=== PATIENT | male | born 1955 | race Caucasian/White ===

== ENCOUNTER → 2016-09-17 | Outpatient (CLI) | payer SELFPAY ==
[2016-09-17 10:34] LABS: CHLORIDE,CL 103 mmol/L (98-110); SODIUM,NA 137 mmol/L (136-146)
--- NOTE | 2016-09-17 14:28 | US ---
EXAMINATION: Abdominal ultrasound HISTORY: Right lower quadrant swelling COMPARISON: None TECHNIQUE: Grayscale and color Doppler images obtained of the abdomen. FINDINGS: The visualized pancreas appears normal. The liver is normal in contour and echogenicity wi thout a focal mass. The gallbladder wall thickness is normal. No pericholecystic fluid or shadowing gallstones. The common bile duct measures 3 mm. The visualized IVC and aorta appear normal. Right ki dney measures at least 13.4 cm and the left kidney measures at least 12.4 cm [id number] without ev idence of hydronephrosis bilaterally. There is cortical thinning noted bilaterally, right greater th an left. The spleen appears mildly prominent in size. No abdominal ascites. The sonographic [place] s ign is negative. IMPRESSION: 1. No acute findings within the abdomen. 2. Mild prominence of the spleen. 3. Renal cortical thinning, right greater than left.
== END | disposition home or self-care (01) ==
LOC: MW.CHIM 09:43
PROVIDERS: ATTEND Internal Medicine
DX: R19.03 Right lower quadrant abdominal swelling, mass and lump (principal); N26.9 Renal sclerosis, unspecified; D73.89 Other diseases of spleen
CPT/HCPCS: 36415; 76700; 76700-26; 80053; 81001; 83036; 85025; 93005

== ENCOUNTER → 2016-09-19 | Outpatient (CLI) | payer SELFPAY ==
[~2016-09-19] MED LIST: Iopamidol 755 MG/ML 500 ML Multipack Bottle IVPUSH STA
--- NOTE | 2016-09-19 12:32 | CT ---
CT of the abdomen and pelvis with contrast. HISTORY: Pain TECHNIQUE: Axial CT images were obtained of the abdomen and pelvis following administration of 100 m L of Isovue-370 in the left antecubital fossa without complication. Coronal and sagittal reconstruct ions obtained. FINDINGS: The lung bases are clear, no pleural effusion. The liver has a mildly nodular contour without a focal hepatic mass. The adrenal glands, spleen, and pancreas appear normal. The gallbladder is unremarkable. No bulky retroperitoneal lymphadenopathy o r abdominal ascites. There is a tiny fat-containing midline ventral supraumbilical hernia. The kidneys enhance and function symmetrically without evidence of obstructive uropathy. The large and small bowel are normal in caliber without evidence of obstruction. The appendix is nor mal. Diverticulosis without evidence of diverticulitis. The urinary bladder appears normal. No suspicious osseous abnormalities identified. There is a bone island within the proximal right fem ur. There is a bridging osteophyte along the anterior right SI joint. IMPRESSION: 1. No acute findings within the abdomen or pelvis. 2. The liver has a nodular contour, correlate clinically for cirrhosis. 3. Tiny fat-containing midline ventral hernia. 4. Diverticulosis without evidence of diverticulitis.
== END ==
LOC: MW.DI 08:28
PROVIDERS: ATTEND Internal Medicine
DX: R10.9 Unspecified abdominal pain (principal); K76.89 Other specified diseases of liver; K43.9 Ventral hernia without obstruction or gangrene; K57.90 Diverticulosis of intestine, part unspecified, without perforation or abscess without bleeding
CPT/HCPCS: 74177; Q9967

== ENCOUNTER → 2016-09-26 | Outpatient (CLI) | payer SELFPAY ==
--- NOTE | 2016-10-02 14:01 | ECHO ---
The echocardiogram report can be seen in this patient's EMR in the Reports section. AYAKA
== END ==
LOC: MW.US 10:02
PROVIDERS: ATTEND Internal Medicine
DX: R07.9 Chest pain, unspecified (principal); R19.03 Right lower quadrant abdominal swelling, mass and lump
CPT/HCPCS: 93306

== ENCOUNTER → 2016-09-29 | Outpatient (CLI) | payer SELFPAY ==
[~2016-09-29] MED LIST changes: -Iopamidol 755 MG/ML 500 ML Multipack Bottle IVPUSH STA; +Sodium Chloride 0.9% 250 ML IV SCH
--- NOTE | 2016-09-29 15:03 | PCM.PRNOTE ---
- Free Text/Narrative Note: Exercise MIBI Indication CP Patient was brought to the stress test lab in postabsorptive state verbal and paper consent was obtained from patient Vital signs at resting state blood pressure of 122/82with a heart rate of 75 EKG shows sinus rhythm no ST changes no Q waves Maximal heart rate of 127and target heart rate is 136 Patient were unable to reach the target heart rate, stage III Lj protocol Peak blood pressure is 160/80 Total exercise time of 6.[address] changes with a peak heart rate no arrhythmia METS 7 Patient expressed symptoms of out of breath, slight chest tightness. Impression Normal hemodynamics, suboptimal chronotropic, poor exercise capacity, suboptimal study due to suboptimal HR response Plan switch to lexiscan
--- NOTE | 2016-09-29 15:06 | PCM.PRNOTE ---
- Free Text/Narrative Note: Lexiscan Indication chest pain Patient was supervised today during infusion portion of the stress test. The patient received Regadenoson 0.4 mg IV and nuclear agent using standard protocol. Sestamibi Tm99 25 Mci was gievn afterwards Baseline blood pressure is 122/76 with a heart rate 97 EKG sinus rhythm without ST abnormalities Vital signs at injection: Peak blood pressure 97/53 with a heart rate of 91 Vital signs at 4 minutes post injection: Peak blood pressure 80/52 with a heart rate of 82 EKG sinus rhythm without further ST changes Patient complained of dizziness, develop hypotension, NS 250 IV bolus was given , after completing NS, BP improved to 134/79 Test done due to end of protocol Impression 1. electrocardiographically nondiagnostic for ischemia due to chemical protocol 2. nuclear imaging pending
--- NOTE | 2016-09-30 09:28 | NM ---
EXAMINATION: Nuclear medicine myocardial perfusion study HISTORY: Chest pain. PROCEDURE: Following intravenous administration of 0.4 mg of Lexiscan and 27.5 mCi of technetium 99m sestamib i, stress SPECT images including gating imaging was performed. FINDINGS: Stress myocardial SPECT images demonstrates heterogeneous uptake within the left ventricular myocard ium. There is a small area of mildly to moderately decreased perfusion along the inferior wall to th e apex. There is also a small area of mildly decreased perfusion along the anteroseptal wall, midpor tion. Review of gated images demonstrates normal wall motion, contractility and wall thickening. The left ventricular ejection fraction is 62 %. The left ventricular chamber size is normal. IMPRESSION: 1. Heterogeneous uptake within a left ventricular myocardium, correlation with rest imaging is recom mended. 2. Normal ventricular chamber size and function with ejection fraction of 62 %.
== END ==
LOC: MW.NM 06:46
PROVIDERS: ATTEND Internal Medicine
DX: R07.9 Chest pain, unspecified (principal)
CPT/HCPCS: 78451; 93017; A9500; J2785; J7050

== ENCOUNTER → 2016-10-03 | Outpatient (CLI) | payer SELFPAY ==
--- NOTE | 2016-10-03 20:00 | NM ---
REPORT ADDENDUM Addendum: Additional images were obtained at rest following the administration of 25.5 mCi of Tech 99M labeled sestamibi. Findings/impression: The previously demonstrated decreased perfusion along the inferior wall and predominantly the apex not as well characterized on the rest image. This suggests a degree of underlying myocardial ischemia. Ejection fraction and chamber size appears similar with an EF of 64% at rest. Addendum Dictated by: Bob Freire MD <Electronically signed by Bob Freire MD in [facility]> 10/03/16 [id number] EXAMINATION: Nuclear medicine myocardial perfusion study HISTORY: Chest pain. PROCEDURE: Following intravenous administration of 0.4 mg of Lexiscan and 27.5 mCi of technetium 99m sestamibi, stress SPECT images including gating imaging was performed. FINDINGS: Stress myocardial SPECT images demonstrates heterogeneous uptake within the left ventricular myocardium. There is a small area of mildly to moderately decreased perfusion along the inferior wall to the apex. There is also a small area of mildly decreased perfusion along the anteroseptal wall, midportion. Review of gated images demonstrates normal wall motion, contractility and wall thickening. The left ventricular ejection fraction is 62 %. The left ventricular chamber size is normal. IMPRESSION: 1. Heterogeneous uptake within a left ventricular myocardium, correlation with rest imaging is recommended. 2. Normal ventricular chamber size and function with ejection fraction of 62 %. Dictated by: Bob Freire MD <Electronically signed by Bob Freire MD in [facility]> 09/30/16 at 0925 2 2 Doc Number: [id number] Copies To: Erin Barth MD; PCP,None~ MTDD
== END ==
LOC: MW.NM 08:12
PROVIDERS: ATTEND Internal Medicine
DX: R07.9 Chest pain, unspecified (principal)
CPT/HCPCS: 78451; A9500

== ENCOUNTER 2020-08-21 06:48 | Emergency (ER) | payer SELFPAY ==
--- NOTE | 2020-08-21 06:50 | EDM.PDOC ---
ED HPI GENERAL MEDICAL PROBLEM - General Stated Complaint: CHEST PAIN Time Seen by Provider: 08/21/20 06:49 Source of Information: Reports: Patient History Limitations: Reports: No Limitations - History of Present Illness INITIAL COMMENTS - FREE TEXT/NARRATIVE: 64M PMHx HTN, CAD s/p cabg presents for chest pain and leg pain. Patient states that he has had these symptoms for several weeks. He notes that he went to an outside ER 3-4 weeks ago and was diagnosed with a "mild heart attack by the chemicals in my blood". He has noted 2-weeks of LLE thigh/lower back pain. He denies urinary incontinence or retention. Denies saddle anesthesia. Denies lower extremity muscle weakness. Notes that he has had difficulty sleeping 2/2 leg pain. Notes that for last week or so he has had a "stabbing chest pain" with mild associated SOB. He thinks this is because his leg pain is so bad that it is stressing his heart. He states he didn't take his BP meds today. Patient also endorses to nurse that he has been drinking daily for >1-month but stopped drinking alcohol two days ago L anterior thigh Pain Score (Numeric/FACES): 10 L chest Pain Score (Numeric/FACES): 10 - Related Data Allergies Allergy/AdvReac Type Severity Reaction Status Date / Time No Known Allergies Allergy Verified 08/21/20 07:31 Home Meds: Home Meds Losartan [Cozaar] 25 mg PO DAILY 08/21/20 [History] Metoprolol Succinate/HCTZ [Dutoprol 25-12.5 mg Tablet] 1 tab PO DAILY 08/21/20 [History] ED ROS GENERAL - Review of Systems Review Of Systems: Comprehensive ROS is negative, except as noted in HPI. ED EXAM, GENERAL - Physical Exam Exam: See Below Exam Limited By: No Limitations General Appearance: Alert, WD/WN, No Apparent Distress Throat/Mouth: Normal Voice, No Airway Compromise Head: Atraumatic, Normocephalic Neck: Normal Inspection Respiratory/Chest: No Respiratory Distress, Lungs Clear, Normal Breath Sounds, No Accessory Muscle Use Cardiovascular: Normal Peripheral Pulses, Regular Rate, Rhythm, No Edema GI/Abdominal: Soft, Non-Tender Back Exam: Normal Inspection, Other (No SP TTP, +left paravertebral lumbar musculature TTP, +L SLR test) Extremities: Normal Inspection Neurological: Alert Psychiatric: Normal Affect, Normal Mood Skin Exam: Warm, Dry, Intact, Normal Color #1 Interpretation EKG Date: 08/21/20 Time: 06:49 Rhythm: NSR Rate (Beats/Min): 60 [place]: Normal P-Wave: Present QRS: Normal ST-T: Normal QT: Normal KS/PQ Interval: 175 Comparison: NA - No Prior EKG EKG Interpretation Comments: no overt ischemic changes, patient observer is down so cannot compare to prior #2 Interpretation EKG Date: 08/21/20 Time: 07:47 Rhythm: NSR Rate (Beats/Min): 45 [place]: Normal P-Wave: Present QRS: Normal ST-T: Normal QT: Normal KS/PQ Interval: 181 EKG Interpretation Comments: no dynamic changes other than bradycardia Course - Vital Signs Last Recorded V/S: Last Vital Signs Temp 97.7 F 08/21/20 07:08 Pulse 50 L 08/21/20 10:24 Resp 18 08/21/20 10:24 BP 154/95 H 08/21/20 10:24 Pulse Ox 96 08/21/20 10:24 - Orders/Labs/Meds Orders: Active Orders 24 hr Category Date Time Status Cardiac Monitoring [RC] . DIRECTED Care 08/21/20 06:57 Active EKG Documentation Completion [RC] STAT Care 08/21/20 06:57 Active EKG Documentation Completion [RC] STAT Care 08/21/20 07:56 Active Pulse Oximetry [RC] ASDIRECTED Care 08/21/20 06:57 Active Sodium Chloride 0.9% [Saline Flush] Med 08/21/20 06:57 Active 10 ml FLUSH ASDIRECTED PRN Sodium Chloride 0.9% [Saline Flush] Med 08/21/20 06:57 Active 2.5 ml FLUSH ASDIRECTED PRN Saline Lock Insert [OM.PC] Stat Oth 08/21/20 06:57 Ordered Medication Orders Sodium Chloride (Saline Flush) 10 ml FLUSH ASDIRECTED PRN PRN Reason: Keep Vein Open Last Admin: 08/21/20 07:13 Dose: 10 ml Documented by: SHELLY Sodium Chloride (Saline Flush) 2.5 ml FLUSH ASDIRECTED PRN PRN Reason: Keep Vein Open Last Admin: 08/21/20 07:14 Dose: 2.5 ml Documented by: [id number] Labs: Laboratory Tests 08/21/20 08/21/20 08/21/20 Range/Units 06:50 06:50 06:50 WBC 7.74 (4.0-11.0) K/uL RBC 4.49 L (4.50-5.90) M/uL Hgb 15.5 (13.0-17.0) g/dL Hct 43.3 (38.0-50.0) % MCV 96.4 (80.0-98.0) fL MCH 34.5 H (27.0-32.0) pg MCHC 35.8 (31.0-37.0) g/dL RDW Std Deviation 44.5 (28.0-62.0) fl RDW Coeff of Sagar 13 (11.0-15.0) % Plt Count 169 (150-400) K/uL MPV 10.10 (7.40-12.00) fL Neut % (Auto) 78.7 (48.0-80.0) % Lymph % (Auto) 13.7 L (16.0-40.0) % Bureau % (Auto) 7.1 (0.0-15.0) % Eos % (Auto) 0.4 (0.0-7.0) % Baso % (Auto) 0.1 (0.0-1.5) % Neut # (Auto) 6.1 H (1.4-5.7) K/uL Lymph # (Auto) 1.1 (0.6-2.4) K/uL Bureau # (Auto) 0.6 (0.0-0.8) K/uL Eos # (Auto) 0.0 (0.0-0.7) K/uL Baso # (Auto) 0.0 (0.0-0.1) K/uL Nucleated RBC % 0.0 /100WBC Nucleated RBCs # 0 K/uL INR 1.16 APTT 25.6 (18.6-31.3) SEC D-Dimer, Quantitative (0.0-0.50) mg/L FEU Sodium 131 L (136-148) mmol/L Potassium 4.5 (3.5-5.1) mmol/L Chloride 93 L (98-107) mmol/L Carbon Dioxide 25.9 (21.0-32.0) mmol/L BUN 26 H (7.0-18.0) mg/dL Creatinine 1.2 (0.8-1.3) mg/dL Est Cr Clr Drug Dosing TNP Estimated GFR (MDRD) > 60.0 ml/min Glucose 124 H (74-106) mg/dL Calcium 9.5 (8.5-10.1) mg/dL Magnesium 1.7 L (1.8-2.4) mg/dL Total Bilirubin 2.7 H (0.2-1.0) mg/dL AST 279 H (15-37) IU/L ALT 227 H (14-63) IU/L Alkaline Phosphatase 108 (46-116) U/L Troponin I 0.092 H* (0.000-0.056) ng/mL B-Natriuretic Peptide (<100) PG/ML Total Protein 8.5 H (6.4-8.2) g/dL Albumin 4.4 (3.4-5.0) g/dL Globulin 4.1 H (2.6-4.0) g/dL Albumin/Globulin Ratio 1.1 (0.9-1.6) SARS-CoV-2 RNA (JANEL) (NEGATIVE) 08/21/20 08/21/20 08/21/20 Range/Units 06:50 06:50 09:00 WBC (4.0-11.0) K/uL RBC (4.50-5.90) M/uL Hgb (13.0-17.0) g/dL Hct (38.0-50.0) % MCV (80.0-98.0) fL MCH (27.0-32.0) pg MCHC (31.0-37.0) g/dL RDW Std Deviation (28.0-62.0) fl RDW Coeff of Sagar (11.0-15.0) % Plt Count (150-400) K/uL MPV (7.40-12.00) fL Neut % (Auto) (48.0-80.0) % Lymph % (Auto) (16.0-40.0) % Bureau % (Auto) (0.0-15.0) % Eos % (Auto) (0.0-7.0) % Baso % (Auto) (0.0-1.5) % Neut # (Auto) (1.4-5.7) K/uL Lymph # (Auto) (0.6-2.4) K/uL Bureau # (Auto) (0.0-0.8) K/uL Eos # (Auto) (0.0-0.7) K/uL Baso # (Auto) (0.0-0.1) K/uL Nucleated RBC % /100WBC Nucleated RBCs # K/uL INR APTT (18.6-31.3) SEC D-Dimer, Quantitative 0.59 H (0.0-0.50) mg/L FEU Sodium (136-148) mmol/L Potassium (3.5-5.1) mmol/L Chloride (98-107) mmol/L Carbon Dioxide (21.0-32.0) mmol/L BUN (7.0-18.0) mg/dL Creatinine (0.8-1.3) mg/dL Est Cr Clr Drug Dosing Estimated GFR (MDRD) ml/min Glucose (74-106) mg/dL Calcium (8.5-10.1) mg/dL Magnesium (1.8-2.4) mg/dL Total Bilirubin (0.2-1.0) mg/dL AST (15-37) IU/L ALT (14-63) IU/L Alkaline Phosphatase (46-116) U/L Troponin I (0.000-0.056) ng/mL B-Natriuretic Peptide 218 H (<100) PG/ML Total Protein (6.4-8.2) g/dL Albumin (3.4-5.0) g/dL Globulin (2.6-4.0) g/dL Albumin/Globulin Ratio (0.9-1.6) SARS-CoV-2 RNA (JANEL) NEGATIVE (NEGATIVE) 08/21/20 Range/Units 10:06 WBC (4.0-11.0) K/uL RBC (4.50-5.90) M/uL Hgb (13.0-17.0) g/dL Hct (38.0-50.0) % MCV (80.0-98.0) fL MCH (27.0-32.0) pg MCHC (31.0-37.0) g/dL RDW Std Deviation (28.0-62.0) fl RDW Coeff of Sagar (11.0-15.0) % Plt Count (150-400) K/uL MPV (7.40-12.00) fL Neut % (Auto) (48.0-80.0) % Lymph % (Auto) (16.0-40.0) % Bureau % (Auto) (0.0-15.0) % Eos % (Auto) (0.0-7.0) % Baso % (Auto) (0.0-1.5) % Neut # (Auto) (1.4-5.7) K/uL Lymph # (Auto) (0.6-2.4) K/uL Bureau # (Auto) (0.0-0.8) K/uL Eos # (Auto) (0.0-0.7) K/uL Baso # (Auto) (0.0-0.1) K/uL Nucleated RBC % /100WBC Nucleated RBCs # K/uL INR APTT (18.6-31.3) SEC D-Dimer, Quantitative (0.0-0.50) mg/L FEU Sodium (136-148) mmol/L Potassium (3.5-5.1) mmol/L Chloride (98-107) mmol/L Carbon Dioxide (21.0-32.0) mmol/L BUN (7.0-18.0) mg/dL Creatinine (0.8-1.3) mg/dL Est Cr Clr Drug Dosing Estimated GFR (MDRD) ml/min Glucose (74-106) mg/dL Calcium (8.5-10.1) mg/dL Magnesium (1.8-2.4) mg/dL Total Bilirubin (0.2-1.0) mg/dL AST (15-37) IU/L ALT (14-63) IU/L Alkaline Phosphatase (46-116) U/L Troponin I 0.093 H* (0.000-0.056) ng/mL B-Natriuretic Peptide (<100) PG/ML Total Protein (6.4-8.2) g/dL Albumin (3.4-5.0) g/dL Globulin (2.6-4.0) g/dL Albumin/Globulin Ratio (0.9-1.6) SARS-CoV-2 RNA (JANEL) (NEGATIVE) Meds: Medications Generic Name Dose Route Start Last Admin Trade Name Freq PRN Reason Stop Dose Admin Sodium Chloride 10 ml 08/21/20 06:57 08/21/20 07:13 Saline Flush FLUSH 10 ml ASDIRECTED PRN Administration Keep Vein Open Sodium Chloride 2.5 ml 08/21/20 06:57 08/21/20 07:14 Saline Flush FLUSH 2.5 ml ASDIRECTED PRN Administration Keep Vein Open Discontinued Medications Generic Name Dose Route Start Last Admin Trade Name Freq PRN Reason Stop Dose Admin Aspirin 324 mg 08/21/20 07:04 08/21/20 07:11 Aspirin PO 08/21/20 07:05 324 mg ONETIME ONE Administration Chlordiazepoxide HCl 50 mg 08/21/20 07:15 08/21/20 07:29 Librium PO 08/21/20 07:16 50 mg ONETIME ONE Administration Enoxaparin Sodium 100 mg 08/21/20 10:49 Lovenox SUBCUT 08/21/20 10:50 ONETIME ONE Sodium Chloride 1,000 mls @ 999 mls/hr 08/21/20 07:59 08/21/20 08:03 Normal Saline IV 08/21/20 08:59 999 mls/hr .Bolus ONE Administration Iopamidol 100 ml 08/21/20 09:01 08/21/20 09:06 Isovue Multipack-370 (76%) IVPUSH 08/21/20 09:02 100 ml ONETIME STA Administration Morphine Sulfate 4 mg 08/21/20 07:04 08/21/20 07:11 Morphine IVPUSH 08/21/20 07:05 4 mg ONETIME ONE Administration - Re-Assessments/Exams Free Text/Narrative Re-Assessment/Exam: 08/21/20 07:17 Patient presents with several complaints. Will start broad workup and treat symptomatically 08/21/20 07:33 Patient's troponin mildly elevated. Will f/u additional labs/workup and transfer patient to center with cardiology coverage 08/21/20 07:40 Patient also with acute transaminitis and elevated bilirubin. Possible alcoholic hepatitis. As patient will be transferred and hepatitis panel is send out, will defer viral hepatitis panel at this time. Will f/u additional labs and consider advanced imaging. 08/21/20 07:52 Will get CTA C/A/P/LLE to r/o dissection vs aneurysm vs clot and to eval liver/gallbladder in setting of new onset transaminitis. After imaging will transfer patient to higher level of care 08/21/20 10:49 CT imaging is unremarkable. No evidence of aneurysm, clot, dissection. Repeat troponin is stable but elevated. Lovenox ordered for possible NSTEMI. [facility] as [facility] is where patient has his CABG surgery. They are busy but will call back shortly for transfer. 08/21/20 11:14 Spoke with hospitalist and [facility] who accepts patient for transfer. She recommends holding off on heparin drip at this time since troponin is not uptrending. Departure - Departure Time of Disposition: 11:15 Disposition: DC/Tfer to Acute Hospital 02 Condition: Fair Clinical Impression: NSTEMI (non-ST elevated myocardial infarction), Transaminitis - Discharge Information Referrals: PCP,None [Primary Care Provider] - Sepsis Event Note (ED) - Focused Exam Vital Signs: Vital Signs Temp Pulse Resp BP BP BP Pulse Ox 08/21/20 10:24 50 L 18 154/95 H 96 08/21/20 09:54 52 L 18 156/103 H 96 08/21/20 07:56 49 L 18 103/65 113/69 97 08/21/20 07:08 97.7 F 61 18 219/105 H 96 - My Orders Last 24 Hours: My Active Orders 08/21/20 06:57 Cardiac Monitoring [RC] . DIRECTED EKG Documentation Completion [RC] STAT Pulse Oximetry [RC] ASDIRECTED Sodium Chloride 0.9% [Saline Flush] 10 ml FLUSH ASDIRECTED PRN Sodium Chloride 0.9% [Saline Flush] 2.5 ml FLUSH ASDIRECTED PRN Saline Lock Insert [OM.PC] Stat 08/21/20 07:56 EKG Documentation Completion [RC] STAT - Assessment/Plan Last 24 Hours: My Active Orders 08/21/20 06:57 Cardiac Monitoring [RC] . DIRECTED EKG Documentation Completion [RC] STAT Pulse Oximetry [RC] ASDIRECTED Sodium Chloride 0.9% [Saline Flush] 10 ml FLUSH ASDIRECTED PRN Sodium Chloride 0.9% [Saline Flush] 2.5 ml FLUSH ASDIRECTED PRN Saline Lock Insert [OM.PC] Stat 08/21/20 07:56 EKG Documentation Completion [RC] STAT
[2020-08-21] MEDS ORDERED: Sodium Chloride 0.9% 2.5 ML Syringe FLUSH PRN (06:57)
[2020-08-21] MEDS ORDERED: Sodium Chloride 0.9% 10 ML Syringe FLUSH PRN (06:57)
[2020-08-21] MEDS ORDERED: Aspirin 81 MG Tab.Chew PO ONE (07:04)
[2020-08-21] MEDS ORDERED: Morphine 4 MG/ML Syringe IVPUSH ONE ×2 (07:04→11:44)
[2020-08-21] MEDS ORDERED: chlordiazePOXIDE 25 MG Cap PO ONE (07:15)
--- NOTE | 2020-08-21 07:15 | CR ---
INDICATION: Chest pain TECHNIQUE: Chest 1 view COMPARISON: None FINDINGS: Cardiovascular and mediastinum: Heart size and vasculature are normal in caliber and appearance. Lungs and pleural spaces: Lungs are clear. No sign of infiltrate or mass. No sign of pleural effusion. No pneumothorax. Bones and soft tissues: No significant findings. IMPRESSION: No acute or significant findings. Dictated by Palmer Salazar MD @ Aug 21 2020 7:12AM Signed by Dr. Palmer Salazar @ Aug 21 2020 7:13AM
[2020-08-21 07:28] LABS: BLOOD UREA NITROGEN,BUN 26 mg/dL (7.0-18.0); CARBON DIOXIDE,CO2 25.9 mmol/L (21.0-32.0); CHLORIDE,CL 93 mmol/L (98-107); GLUCOSE RANDOM 124 mg/dL (74-106); POTASSIUM,K 4.5 mmol/L (3.5-5.1); SODIUM,NA 131 mmol/L (136-148)
[2020-08-21] MEDS ORDERED: Sodium Chloride 0.9% 1,000 ML IV ONE (07:59)
[2020-08-21] MEDS ORDERED: Iopamidol 755 MG/ML 500 ML Multipack Bottle IVPUSH STA (09:01)
--- NOTE | 2020-08-21 10:44 | CT ---
INDICATION: Chest and abdominal pain. Evaluate for dissection. COMPARISON: None. TECHNIQUE: CT angiography of the chest, abdomen and pelvis with and without IV contrast. 100 cc Isovue-370. FINDINGS: Sternotomy hardware and changes status post CABG. Heart size is within normal limits. Severe coronary artery calcifications. No pericardial effusion. No enlarged lymph nodes in the chest. Atherosclerosis of the thoracic and abdominal aorta. No evidence of aneurysmal dilatation or dissection of the thoracic or abdominal aorta. Ectasia of the ascending thoracic aorta measuring up to 4.5 cm. Celiac, SMA, renal arteries and FRANNY are patent. No focal lung consolidation, pleural effusion or pneumothorax. Small perifissural nodule in the right lung, likely an intrapulmonary lymph node (series 202, image 63). No suspicious pulmonary nodule or mass. Hepatic steatosis as well as nodular liver contour consistent with cirrhotic liver morphology. Gallbladder, adrenal glands, spleen, pancreas are unremarkable. Renal cortical scarring. No obstructing renal calculus or hydronephrosis. Prostate is mildly enlarged. Excreted contrast material in the dependent portion of the bladder. Colonic diverticulosis. Normal appendix. No evidence of bowel obstruction or inflammation. No enlarged lymph nodes in the abdomen or pelvis. Degenerative changes in the spine. IMPRESSION: 1. No evidence of aneurysmal dilatation or dissection of the thoracic or abdominal aorta. Ectasia of the ascending thoracic aorta measuring up to 4.5 cm. 2. Cirrhotic liver morphology and hepatic steatosis. 3. Diverticulosis. 4. Prostate enlargement. Please note that all CT scans at this facility use dose modulation, iterative reconstruction, and/or weight-based dosing when appropriate to reduce radiation dose to as low as reasonably achievable. Dictated by Roger Dhaliwal MD @ Aug 21 2020 10:42AM Signed by Dr. Roger Dhaliwal @ Aug 21 2020 10:42AM
[2020-08-21] MEDS ORDERED: Enoxaparin 100 MG/1 ML Syringe SUBCUT ONE (10:49)
== END 2020-08-21 13:00 ==
LOC: MW.ED 06:48
DX: I21.4 Non-ST elevation (NSTEMI) myocardial infarction (principal); R74.01 Elevation of levels of liver transaminase levels; I10 Essential (primary) hypertension; I25.10 Atherosclerotic heart disease of native coronary artery without angina pectoris; Z95.1 Presence of aortocoronary bypass graft; Z20.822 Contact with and (suspected) exposure to COVID-19; Z79.899 Other long term (current) drug therapy
CPT/HCPCS: 36415; 71045; 71275; 74174; 80053; 83735; 83880; 84484; 85025; 85379; 85610; 85730; 87635; 93005; 96374; 96376; 99285; A9270; J2270; J7030; Q9967; 93010; 99291; U0002